=== PATIENT | female | born 1950 | race Caucasian/White ===

== ENCOUNTER 2017-10-10 17:56 | Emergency (ER) | payer MEDICARE, MEDICAID ==
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
--- NOTE | 2017-10-11 13:00 | CT ---
UNENHANCED BRAIN CT, 10/10/17 Multislice acquisition through the brain without IV contrast was performed. No priors. There is diffuse cerebral atrophy. There are multiple foci of increased density consistent with acute hemorrhage. There is a 9 mm oval-shaped blood density collection located extraaxially adjacent to the right frontal lobe and adjacent to the interhemispheric fissure. Minimal mass effect associated with it. There is another smaller focus superior to this that lies adjacent to the right frontal lobe and interhemispheric fissure also. There is a 7 mm focus of acute blood density located within a sulci in the left parietal region adjacent to the interhemispheric fissure. No mass effect associated with this. There is a smaller collection of blood density located adjacent to the tentorium cerebella on the left and adjacent to the falx on the left. No other significant findings. No osseous abnormalities. No fractures. There is some fluid noted within the ethmoid sinuses consistent with sinus disease. IMPRESSION: Multiple foci of subdural and subarachnoid intracranial hemorrhage as discussed above. No significant mass effect associated with these. The patient's physician was notified of the findings by telephone and by virtual radiologic preliminary radiology report. [id number] [facility]
--- NOTE | 2017-10-13 13:28 | CR ---
DATE OF SERVICE: 10/10/2017 CLINICAL DATA: Fall Left Wrist No priors available There is a minimally displaced, oblique, intra-articular fracture through the base of the radial styloid process. No other acute abnormalities. There are osteoarthritic changes involving multiple joints. Impression: Fracture distal radius. Thank you for allowing us to participate in the care of your patient. RADHA
== END 2017-10-10 20:55 ==
LOC: LB.ED 17:56
DX: S06.5X1A Traumatic subdural hemorrhage with loss of consciousness of 30 minutes or less, initial encounter (principal); S06.6X1A Traumatic subarachnoid hemorrhage with loss of consciousness of 30 minutes or less, initial encounter; S52.512A Displaced fracture of left radial styloid process, initial encounter for closed fracture; I10 Essential (primary) hypertension; E11.9 Type 2 diabetes mellitus without complications; W19.XXXA Unspecified fall, initial encounter; Y92.009 Unspecified place in unspecified non-institutional (private) residence as the place of occurrence of the external cause; Z88.1 Allergy status to other antibiotic agents; Z88.8 Allergy status to other drugs, medicaments and biological substances
CPT/HCPCS: 36415; 70450; 73100-LT; 80053; 85025; 99285; 99285-25; A0425; A0429; G0480